=== PATIENT | female | born 1975 | race Caucasian/White ===

== ENCOUNTER → 2019-07-18 | Outpatient (CLI) | payer OTHER ==
--- NOTE | 2019-07-18 09:28 | USB ---
Reason for exam: clinical finding. History: Family history of breast cancer in mother at age 65. Saline implants in both breasts, August 2008. Took hormonal contraceptives for 10 years. Physical Findings: Nurse did not find any significant physical abnormalities on exam. US Breast BILAT Right complete breast ultrasound includes all four quadrants, the retroareolar region and axilla. Finding demonstrates no cystic or solid lesion seen. Left complete breast ultrasound includes all four quadrants, the retroareolar region and axilla. Finding demonstrates no cystic or solid lesion seen. These results were verbally communicated with the patient and result sheet given to the patient on 07/18/19. ASSESSMENT: Negative, BI-RAD 1 RECOMMENDATION: Routine screening mammogram of both breasts. Due now for mammogram, patient declines. Consider breast MRI if strong family history.
== END | disposition home or self-care (01) ==
LOC: RADUSWWP 08:25
PROVIDERS: ATTEND Family Medicine
DX: Z01.411 Encounter for gynecological examination (general) (routine) with abnormal findings (principal); Z98.82 Breast implant status

== ENCOUNTER → 2020-03-20 | Outpatient (CLI) | payer OTHER | END | disposition home or self-care (01) | LOC: LABWHC1 14:26 | DX: Z01.84 Encounter for antibody response examination (principal) | CPT/HCPCS: 36415; 84439; 84443 ==

== ENCOUNTER → 2021-09-14 | Outpatient (CLI) | payer BC ==
[2021-09-14 22:58] LABS: African American GFR (CKD) 101.8 (60.0-200.0); BUN/Creat Ratio 10.38 Ratio (12.00-20.00); Blood Urea Nitrogen 8.3 mg/dL (9.0-27.0); Calcium 9.2 mg/dL (8.7-10.3); Carbon Dioxide 24.8 mmol/L (20.0-27.5); Chloride 103 mmol/L (96-109); Chol/HDL Ratio 2.58 Ratio; Glucose 87 mg/dL (70-110); LDL Cholesterol,Calculated 97.6 mg/dL (0.0-131.0); Non-African American GFR(CKD) 87.8 (60.0-200.0); Potassium 3.8 mmol/L (3.5-5.5); Sodium 139 mmol/L (135-145); VLDL Calculation 13.86 mg/dL (5.00-40.00)
== END | disposition home or self-care (01) ==
LOC: LABWHC1 16:34
PROVIDERS: ATTEND Internal Medicine Clinical Cardiac Electrophysiology
DX: I49.3 Ventricular premature depolarization (principal); E78.5 Hyperlipidemia, unspecified
CPT/HCPCS: 36415; 80048; 80061; 84443

== ENCOUNTER → 2021-10-14 | Outpatient (CLI) | payer BC ==
--- NOTE | 2021-10-14 15:18 | CONS ---
CONSULTATION DATE OF SERVICE: 10/14/2021 46-year-old lady has been evaluated in [facility] for possible obstructive sleep apnea-hypopnea syndrome. HISTORY OF PRESENT ILLNESS SLEEP-WAKE EVALUATION: SLEEP SCHEDULE: Patient's usual sleep schedule on weekdays from 11 p.m. until 6:40 am and on weekends from 11 p.m. until 7 a.m. FALLING ASLEEP: Usually no problems with falling asleep. No TV in bedroom. DURING SLEEP: The patient sleeps on the side position. She wakes up from sleep once with nocturia. She has positive history of bradycardia during sleep. DURING THE DAY/SLEEP WAKE EVALUATION: During the day, patient has difficulties paying attention, feels sleepiness during the day. [place] Sleepiness Scale significantly increased to 14, although she usually does not take naps. PAST MEDICAL HISTORY: Positive for bradycardia, PVCs. Headaches. PAST SURGICAL HISTORY: Status post spinal fusion level L4-L5, breast augmentation. MEDICATIONS: None. SOCIAL HISTORY: Negative for smoking, alcohol consumption occasional. FAMILY HISTORY: Hypertension, asthma, snoring. REVIEW OF SYSTEMS: Bradycardia, sometimes awakenings from sleep. PHYSICAL EXAMINATION: GENERAL: lady without distress. BP 137/80, HR 59, RR 14, height 5 feet 2-1/3 inches, weight 124.2 pounds, body mass index 22.4, temperature 97.1, oxygen saturation at room air 100%. Oropharynx practically normal position of soft palate, Mallampati 2. Possibly slightly short distance between soft palate and posterior pharyngeal wall. Neck 13-1/4 inches in circumference. NECK: Supple, no JVD. Thyroid is not palpable. LUNGS: Clear to percussion and to auscultation. Good air exchange. No wheezing or rhonchi. HEART: S1, S2 regular. No murmurs, gallops, or rubs. ABDOMEN: Soft and nontender. Bowel sounds are present. No organomegaly appreciated. EXTREMITIES: No clubbing or cyanosis. SYSTEM CONSULTANT: Awake, alert, and oriented X3. Cranial nerves 2 to 7 intact. There is no fasciculation or atrophy. noted. No focal deficits observed. IMPRESSION: 1. Awakenings from sleep with nocturia bradycardia documented during the sleep by Holter monitor. Possible obstructive sleep apnea-hypopnea syndrome. 2. History of PVCs. 3. Status post back surgery, spinal fusion L4/L5. 4. Status post breast augmentation surgery. 5. Episodes of headaches. PLAN: 1. Home sleep apnea test for evaluation of patient's breathing during sleep. 2. CPAP/BiPAP titration if sleep study confirms obstructive sleep apnea-hypopnea syndrome. 3. Preferable position during sleep on the side. 4. No driving if patient feels any sleepiness. 5. I will see patient for follow up visit to explain results of testing and following plan. Thank you very much for referring this patient for consultation. Sincerely, Tyrone Story MD, PhD, FAASM Diplomat of [place] [employer] Sleep Medicine Board of [place] [employer] Refrigeration Supervisor of [facility] [place] MMODL / IJN: [id number] /
== END ==
LOC: SLEEP 10:38
PROVIDERS: ATTEND Internal Medicine
DX: G47.8 Other sleep disorders (principal); R35.1 Nocturia; R00.1 Bradycardia, unspecified; Z98.1 Arthrodesis status; Z98.890 Other specified postprocedural states; Z86.69 Personal history of other diseases of the nervous system and sense organs; Z86.79 Personal history of other diseases of the circulatory system; I10 Essential (primary) hypertension; J45.909 Unspecified asthma, uncomplicated
CPT/HCPCS: 99211

== ENCOUNTER → 2022-01-06 | Outpatient (CLI) | payer BC ==
--- NOTE | 2022-01-06 15:42 | P.PN ---
Subjective DATE: 01/06/2022 FOLLOW UP VISIT. Patient returned to sleep center for follow-up visit to discuss results of sleep study and following plan I discussed results of sleep test with patient in details. No significant respiratory abnormalities have been documented during the home test. Normal oxygenation during the test lowest oxygen level was 89%. Snoring and bradycardia have been documented. Patient has some symptoms of excessive daytime sleepiness with [place] Sleepiness Scale of 11. I discussed with the patient the possibility of multiple sleep latency test for objective evaluation here sleepiness. . MEDICATIONS: None During physical exam: GENERAL: A pleasant patient without any distress. VITAL SIGNS: BP 123/63, HR 42, RR 16 , weight 130.4, temperature 97.1, oxygen saturation at room air 99% . HEENT: PERRLA, EOMI. NECK: Supple. No JVD. LUNGS: Clear to percussion and to auscultation. Good air exchange. No wheezing or rhonchi. HEART: S1, S2 regular. ABDOMEN: Soft and nontender. EXTREMITIES: No clubbing or cyanosis. CARTOGRAPHY/MAPPING TECHNICIAN: Awake, alert, and oriented x3. No focal deficit. Impressions: 1. No significant respiratory abnormalities during sleep study 2. Bradycardia during wake and sleep.. 3. Snoring have been documented during the sleep test. 4. Some flow limitation have been documented during the sleep test, but it does not qualify patient for CPAP treatment at the present time. 5. Sleepiness during the day with mild increasing [place] Sleepiness Scale. Plan: 1. Multiple sleep latency test if patient will continue to feel sleepiness during the day. 2. Sleep hygiene with regular time in bed for at least 8 hours. 3. Precautions related to driving. No driving if feel any sleepiness. Patient is aware about civil and criminal liability for unsafe driving, promised to follow recommendations. 4. Follow up visit in 6 months or earlier if patient has any problems. Thank you very much for allowing me to participate in the management of your patient. Tyrone Story MD, PhD, FAASM. Diplomat of [place] [employer], Sleep Medicine Board by [place] [employer] [facility] Steward [facility] [place]
== END ==
LOC: SLEEP 14:07
PROVIDERS: ATTEND Internal Medicine
DX: R06.89 Other abnormalities of breathing (principal); R00.1 Bradycardia, unspecified

== ENCOUNTER → 2023-02-16 | Outpatient (CLI) | payer BC ==
--- NOTE | 2023-02-16 10:26 | USB ---
Reason for Exam: Clinical finding. Patient History: Menarche at age 13. First Full-Term at age 29. Late child-bearing (after 29). Patient used Hormonal Contraceptives for 10 years. 08/2008, Bilateral Implants. Mother had breast cancer, age 65. Risk Values: Melodie 5 year model risk: 1.7%. NCI Lifetime model risk: 16.3%. Technique: Method: Whole Breast Handheld. Prior Study Comparison: 04/09/2009 Bilateral Diagnostic Mammogram, [facility]. Findings: The whole breast of both breasts, the axilla of both breasts and the retroareolar of both breasts were scanned. Technique utilized:US breast complete BILAT Image; Ultrasound imaging of bilateral: All 4 quadrants, the retroareolar region and axilla. No evidence for organizing fluid collection or mass. Overall Assessment: Benign, BI-RAD 2 Management: Screening Mammogram of both breasts in 1 year. A clinical breast exam by your physician is recommended on an annual basis and results should be correlated with mammographic findings. This exam should not preclude additional follow-up of suspicious palpable abnormalities. Results were given to the patient verbally at the time of exam. Electronically signed and approved by: Aren Bojorquez DO
== END | disposition home or self-care (01) ==
LOC: RADUSWWP 09:47
PROVIDERS: ATTEND Family Medicine
DX: R92.8 Other abnormal and inconclusive findings on diagnostic imaging of breast (principal); Z98.82 Breast implant status; Z80.3 Family history of malignant neoplasm of breast

== ENCOUNTER → 2023-09-05 | Outpatient (CLI) | payer BC ==
[2023-09-05 15:28] LABS: Estradiol 89.9 pg/mL
[2023-09-05 15:43] LABS: Follicle Stimulating Hormone 6.5 mIU/mL
== END | disposition home or self-care (01) ==
LOC: LABWHC1 08:42
PROVIDERS: ATTEND Nurse Practitioner
DX: N95.1 Menopausal and female climacteric states (principal); R68.82 Decreased libido
CPT/HCPCS: 36415; 82627; 82670; 83001; 84270

== ENCOUNTER → 2024-08-01 | Outpatient (CLI) | payer BC | END | disposition home or self-care (01) | LOC: LABWHC1 14:45 | PROVIDERS: ATTEND Psychiatry & Neurology Neurology | DX: H53.2 Diplopia (principal) | CPT/HCPCS: 36415; 82607; 85652; 86038 ==

== ENCOUNTER → 2024-08-31 | Outpatient (CLI) | payer BC ==
--- NOTE | 2024-08-31 09:30 | MR ---
EXAMINATION TYPE: MR brain/orbits wo/w con DATE OF EXAM: 08/31/2024 COMPARISON: NONE HISTORY: Double vision TECHNIQUE: Multiplanar, multisequence images of the brain and brainstem and bilateral orbits are all performed w ithout and with IV contrast, utilizing 6 mL intravenous Gadobutrol . FINDINGS: Diffusion weighted images demonstrate no evidence of a recent infarct or other diffusion ab normality. There is no extra-axial fluid collection or significant white matter signal abnormality. The ventricular system and cisternal spaces are normal in size and appearance. The brain volume is age appropriate. Midline structures demonstrate normal morphology. The craniocervical junction appears within normal limits. Post contrast images demonstrate no abnormal enhancement. The dural venous sinuses appear pa tent. There is mild mucosal thickening of the inferior right maxillary sinus. The globes are intact bilater ally. Rectus muscles are symmetric and within normal limits. There is no abnormal enhancing intraorbi latrice mass. Optic chiasm is not effaced. Suprasellar cistern is preserved. IMPRESSION: No suspicious findings identified to account for patient's clinical symptoms of double vi suze. [facility], , 08/31/2024 9:27 AM
== END | disposition home or self-care (01) ==
LOC: RADMRIMAIN 08:16
PROVIDERS: ATTEND Psychiatry & Neurology Neurology
DX: H53.2 Diplopia (principal); G71.9 Primary disorder of muscle, unspecified
CPT/HCPCS: 70543; 70553; A9585